=== PATIENT | male | born 2000 | race Caucasian/White ===

== ENCOUNTER → 2018-12-31 | Outpatient (CLI) | payer OTHER ==
--- NOTE | 2018-12-31 10:00 | RADIOLOGY IMAGING REPORT ---
FACILITY: [facility] [place] PATIENT NAME: Jeremie Leiva : 2000 MR: [id number] V: [id number] EXAM DATE: ORDERING PHYSICIAN: FAYE BLOOM TECHNOLOGIST: Location: [facility] Patient: Jeremie Leiva : 2000 Visit/Account:[id number] Date of Sevice: 12/31/2018 Exam type: RIBS RIGHT History: Football injury, right-sided rib pain Comparison: Chest radiograph performed today. Findings: Three views were submitted. There is a tiny cortical irregularity along the distal aspect of the lef t ninth rib only seen on one view could represent a tiny nondisplaced fracture. There is no evidence of pleural effusion primary consolidation or pneumothorax. The cardiac silhouette is normal IMPRESSION: 1. Is a tiny cortical irregularity along the distal aspect of the left ninth rib only seen on one vi ew which may represent a small nondisplaced fracture Report Dictated By: Chloé Corrigan MD at 12/31/2018 9:45 AM Report E-Signed By: Chloé Corrigan MD at 12/31/2018 9:56 AM WSN:[email or web address]
--- NOTE | 2018-12-31 10:01 | RADIOLOGY IMAGING REPORT ---
FACILITY: [facility] PATIENT NAME: Jeremie Leiva : 2000 MR: [id number] V: [id number] EXAM DATE: ORDERING PHYSICIAN: FAYE BLOOM TECHNOLOGIST: Location[place] [facility] [place] Patient: Jeremie Leiva : 2000 Visit/Account:[id number] Date of Sevice: 12/31/2018 Exam type: CHEST PA LAT History: Football injury, right-sided pain Comparison: Right rib series performed today. Findings: The lungs are free of acute effusions, infiltrates or edema. There is mild elevation right hemidiaph ragm. The cardiac silhouette is normal in size. There appears to be a pectus excavatum deformity th e anterior chest wall IMPRESSION: 1. No evidence of acute pulmonary consolidation Mild elevation right hemidiaphragm Pectus excavatum deformity the anterior chest wall Report Dictated By: Chloé Corrigan MD at 12/31/2018 9:56 AM Report E-Signed By: Chloé Corrigan MD at 12/31/2018 9:57 AM WSN:[email or web address]
== END ==
LOC: RAD 09:16
PROVIDERS: ATTEND Emergency Medicine Sports Medicine
DX: S20.211A Contusion of right front wall of thorax, initial encounter (principal); R07.82 Intercostal pain
CPT/HCPCS: 71046; 71100